=== PATIENT | male | born 1995 | race African-American/Black ===

== ENCOUNTER 2019-01-23 22:14 | Emergency (ER) | payer SELFPAY ==
[~2019-01-23] VITALS: Ht 177.8 cm; Wt 72.6 kg
--- NOTE | 2019-01-23 22:22 | NUR ---
ED Nurse Note: pt walked in c/o pain and possible infection on left 5th toe for past couple of days, noted mild swelling with tenderness and yellow drainage, will cont monitor. cms intact. pt ambulatory w/ steady gait.
[2019-01-23 22:23] VITALS: BP 118/77
--- NOTE | 2019-01-23 22:24 | NUR ---
HAND-OFF: Report given to MITUL RIVERA.
[2019-01-23] MEDS ORDERED: Lidocaine 1% 10mg/ml/Epi 0.005mg/ml 10ml vial INJ ONE (23:15)
[2019-01-24] MEDS ORDERED: IBUPROFEN600 MG ORAL (00:07)
[2019-01-24] MEDS ORDERED: CEPHALEXIN500 MG ORAL (00:07)
--- NOTE | 2019-01-24 00:20 | NUR ---
ED Nurse Note: pt cleared to be d/c per ERMD, pt discharge and aftercare instruction provided w/ prescription, pt education done via discussion and handout, dressing applied, pt advised to follow up with pcp or return to ed if changes in condition, vss, ambulatory w/ steady gait, left w/ all belongings.
[2019-01-24 00:21] VITALS: BP 116/70
--- NOTE | 2019-01-25 21:01 | Emergency Room Report ---
History of Present Illness General Chief Complaint: Skin Rash/Abscess Source: Patient Present Illness HPI Patient is a 21-year-old male presented after increased left small toe pain and swelling. This been present for approximately 3 days. Patient had attempted to roberto a small area of swelling. This had become somewhat more painful. He also noticed some increased swelling to the area. He denies any fever. He denies any history of immunocompromise. Allergies: Coded Allergies: No Known Allergies (Unverified , 01/23/19) Patient History Past Medical History: see triage record Reviewed Nursing Documentation: PMH: Agreed; PSxH: Agreed Nursing Documentation-PMH Past Medical History: No Stated History Review of Systems All Other Systems: negative except mentioned in HPI Physical Exam Vital Signs Date Time Temp Pulse Resp B/P (MAP) Pulse Ox O2 Delivery O2 Flow Rate FiO2 01/23/19 22:20 98.2 77 18 118/77 (91) 98 Room Air General Appearance: well appearing, no apparent distress, alert, GCS 15 Head: normocephalic, atraumatic ENT: hearing grossly normal, normal voice Neck: full range of motion, supple Respiratory: no respiratory distress, speaking full sentences Musculoskeletal: no calf tenderness Neurologic: normal inspection, alert, oriented x3, normal gait Psychiatric: mood/affect normal Skin: other - small toe left foot with some fluctuance and white discoloration Procedures Incision and Drainage Incision and Drainage : Consent: Written Site: toe I & D Procedure: betadine prep, sterile drapes applied Wound Location: lower extremity Wound's Depth, Shape: superficial Wound Length (cm): 0 Wound Explored: clean Anesthesia: Lidocaine w/ Epi Volume Anesthetic (ccs): 0 Patient Tolerated: Well Complications: None Medical Decision Making Diagnostic Impression: Primary Impression: Paronychia ER Course Patient present for skin rash. Differential diagnosis includes is not limited to abscess, cellulitis, fungal infection among others. Patient has a benign exam and does not appear to require any imaging or laboratory testing at this time. Patient appears to have a paronychial infection of the toe. Patient 's toe was anesthetized with a small amount of 1% lidocaine with epi. Abscess was drained. Patient tolerated this well. Toe appeared to be well perfused after drainage. Patient was advised to recheck in 2 to 3 days. He was given prescription for oral antibiotics.Patient was asked return if worse Last Vital Signs Date Time Temp Pulse Resp B/P (MAP) Pulse Ox O2 Delivery O2 Flow Rate FiO2 01/24/19 00:21 98.2 76 18 116/70 98 Room Air Status: improved Disposition: HOME, SELF-CARE Condition: Stable Scripts Cephalexin* (KEFLEX*) 500 Mg Capsule 500 MG ORAL EVERY 6 HOURS, #30 CAP Prov: Shorty Kruse MD 01/24/19 Ibuprofen* (MOTRIN*) 600 Mg Tablet 600 MG ORAL Q8H PRN for For Pain, #30 TAB 0 Refills Prov: Shorty Kruse MD 01/24/19 Referrals: NOT CHOSEN IPA/,REFERRING (PCP) Patient Instructions: Edward Wyhy-ck-Mwzk Shorty Kruse MD Jan 25, 2019 21:01
== END 2019-01-24 00:45 | disposition home or self-care (01) ==
LOC: EMR 01-24 00:44
DX: L03.032 Cellulitis of left toe (principal)
CPT/HCPCS: 10060; 99282

== ENCOUNTER 2019-07-17 23:08 | Emergency (ER) | payer MEDICAID, OTHER ==
[~2019-07-17] VITALS: Ht 177.8 cm; Wt 71.7 kg
[~2019-07-17 23:08] MED LIST: CEPHALEXIN500 MG ORAL; IBUPROFEN600 MG ORAL
[2019-07-17 23:22] VITALS: BP 138/80
[2019-07-17] MEDS ORDERED: IBUPROFEN600 MG ORAL (23:27)
[2019-07-17] MEDS ORDERED: ZITHROMAX250 MG ORAL (23:27)
--- NOTE | 2019-07-17 23:27 | Emergency Room Report ---
History of Present Illness General Chief Complaint: Flu Like Symptoms Source: Patient Present Illness HPI This a 24-year-old male with no past medical history. He presents with chief complaint of headache, sore throat, body pain. Onset for last 3 days. Subjective fever and chills. Slight cough. No congestion. Pain is 8 out of 10. Worse with movement. Decreased appetite. Decreased fluid intake. Denies any other complaint. Allergies: Coded Allergies: No Known Allergies (Unverified , 01/23/19) Patient History Past Medical History: see triage record, old chart reviewed Past Surgical History: none Pertinent Family History: none Social History: Denies: smoking Immunizations: other Reviewed Nursing Documentation: PMH: Agreed; PSxH: Agreed Nursing Documentation-PMH Past Medical History: No Stated History Review of Systems Constitutional: Reports: chills, malaise Eye: Denies: eye pain, blurred vision ENT: Reports: throat pain; Denies: ear pain, nose congestion, throat swelling Respiratory: Denies: cough, shortness of breath Cardiovascular: Denies: chest pain, palpitations Gastrointestinal: Denies: abdominal pain, diarrhea, nausea, vomiting Musculoskeletal: Denies: back pain, joint pain Skin: Denies: rash Neurological: Reports: headache; Denies: numbness Endocrine: Denies: increased thirst, increased urine Hematologic/Lymphatic: Denies: easy bruising All Other Systems: negative except mentioned in HPI Physical Exam Vital Signs Date Time Temp Pulse Resp B/P (MAP) Pulse Ox O2 Delivery O2 Flow Rate FiO2 07/17/19 23:11 98.4 82 18 138/80 (99) 97 Room Air Vitals normal Sp02 EP Interpretation: reviewed, normal General Appearance: well appearing, no apparent distress, alert Head: normocephalic, atraumatic Eyes: bilateral eye PERRL, bilateral eye EOMI ENT: hearing grossly normal, normal pharynx, uvula midline, pharyngeal erythema Neck: full range of motion, supple, no meningismus Respiratory: chest non-tender, lungs clear, normal breath sounds Cardiovascular #1: regular rate, rhythm, no murmur Gastrointestinal: normal bowel sounds, non tender, no mass, no organomegaly, no bruit, non-distended Musculoskeletal: back normal, normal range of motion, gait/station normal Psychiatric: mood/affect normal Medical Decision Making Diagnostic Impression: Primary Impression: Influenza-like symptoms Additional Impression: Pharyngitis, acute Qualified Codes: J02.9 - Acute pharyngitis, unspecified ER Course Patient with influenza-like symptoms. No evidence of sepsis, meningitis, pneumonia to name a few. Will discharge home. Last Vital Signs Date Time Temp Pulse Resp B/P (MAP) Pulse Ox O2 Delivery O2 Flow Rate FiO2 07/17/19 23:22 82 18 Room Air 07/17/19 23:22 98.4 138/80 97 Status: improved Disposition: HOME, SELF-CARE Condition: Stable Scripts Ibuprofen* (MOTRIN*) 600 Mg Tablet 600 MG ORAL THREE TIMES A DAY, #30 TAB 0 Refills Prov: Caden Lott MD 07/17/19 Azithromycin* (ZITHROMAX*) 250 Mg Tablet 250 MG ORAL DAILY, #6 TAB 0 Refills Take two tables once daily for 1 day, then one tablet once daily for 4 days. Prov: Caden Lott MD 07/17/19 Additional Instructions: Rest. Increase fluids. Follow-up with your doctor in 7 days. Return if worse. Caden Lott MD Jul 17, 2019 23:27
[2019-07-17] MEDS ORDERED: Ketorolac 30mg Inj IV ONE (23:30)
[2019-07-17] MEDS ORDERED: Dexamethasone 4mg/ml vial IVP ONE (23:30)
--- NOTE | 2019-07-18 | NUR ---
ED Nurse Note: pt presents to ED from home c/o LORENZO and sore throat x3 day. pt states that started feeling weak and dizzy today. pt took tylenol yesterday for pain with minimal relief of symptoms. pt also reports decreased appetite and feeling like he is dehydrated because it hurts for him to drink water. pt denies getting a flu vaccine this year
[2019-07-18 01:00] VITALS: BP 138/80
--- NOTE | 2019-07-18 01:00 | NUR ---
ED Nurse Note: pt verbalized improvement of symptoms and that he feels hungry or the first time in a couple days. Pt cleared by health care Provider for discharge. DC instructions/prescription were given and explained to pt. pt verbalized understanding of teachings. All medical devices such as ID band and IV site removed. Pt is AAO x4, ambulatory and left with all personal belongings.
== END 2019-07-18 01:00 | disposition home or self-care (01) ==
LOC: EMR 23:20
DX: J02.9 Acute pharyngitis, unspecified (principal)
CPT/HCPCS: 96361; 96374; 96375; J1100; J1885; J7030; Z7502; 99284